=== PATIENT | male | born 1940 | race Caucasian/White ===

== ENCOUNTER 2016-10-05 20:58 | Observation (INO) | payer OTHER ==
[~2016-10-05] VITALS: Ht 179.1 cm; Wt 128.0 kg
[~2016-10-05 20:58] MED LIST: ADULT LOW DOSE81 M1 PO; AMLODIPINE BESY10 MG PO; AMLODIPINE BESYL5 MG PO; APRESOLINE100 MG PO; ASPIRIN81 M2 PO; ATENOLOL100 M1 PO; ATENOLOL50 MG PO; BUMEX0.5 MG PO; CALCITRIOL0.25 MCG PO; CATAPRES0.3 MG PO; CHLORTHALIDONE25 MG PO; CLEOCIN HCL300 MG PO; CLONIDINE HCL0.2 MG PO; CRESTOR40 MG PO; DIOVAN160 MG PO; FENOFIBRATE40 MG PO; FENOFIBRATE48 MG PO; Feosol PO; GABAPENTIN300 MG PO; GLUCOPHAGE500 M1 PO; HYDROCHLOROTHIA25 MG PO; IMDUR60 MG PO; LIPITOR20 MG PO; NITROSTAT,NITR0.4 M1 SL; NORVASC5 MG PO; PANTOPRAZOLE SO40 MG PO; PLAVIX75 MG PO; PRINIVIL40 MG PO; Protonix PO; TENORMIN100 M1 PO; TRICOR145 MG PO; VITAMIN B-12250 MCG PO; VITAMIN B122500 MCG PO; VITAMIN D-32000 UNI2 PO; VITAMIN D2000 UNIT PO; ZESTRIL,PRINIVI40 MG PO; ZETIA10 MG PO
[2016-10-05 21:25] LABS: HEMATOCRIT 33.5 % (38.0-50.0); MCH 31.4 PG (29.0-34.0); MCHC 32.5 G/DL (30.0-36.0); MCV 96.5 FL (86-99); MEAN PLAT.VOLUME 9.4 uM^3 (9.0-12.4); PLATELET COUNT 265 K/uL (156-360); RBC DIS.WIDTH-CV 13.2 % (11.8-14.6); RBC DIS.WIDTH-SD 46.8 % (39-53); RED BLOOD COUNT 3.47 M/uL (4.00-5.50); WHITE BLOOD COUNT 6.3 K/uL (4.1-10.2)
[2016-10-05 21:37] LABS: CHLORIDE 109 mEq/L (99-109); POTASSIUM 4.4 mEq/L (3.7-5.4); SODIUM 141 mEq/L (136-147)
[2016-10-05 21:39] LABS: GLUCOSE 159 mg/dL (70-99)
[2016-10-05 21:40] LABS: ANION GAP 13 MEQ/L (2-14)
[2016-10-05 21:43] LABS: GFR ESTIMATE (CALCULATED) 30 mL/min/
[2016-10-05 21:44] LABS: UREA NITROGEN (BUN) 46 mg/dL (9-23)
[2016-10-05 21:48] LABS: TROP-I INTERPRETATION NEGATIVE; TROPONIN-I 0.02 ng/mL (0.0-0.30)
[2016-10-05] MEDS ORDERED: TRICOR48 MG PO (22:08)
[2016-10-05] MEDS ORDERED: CLONIDINE HCL0.3 MG PO (22:09)
[2016-10-05] MEDS ORDERED: LIPITOR40 MG PO (22:09)
[2016-10-05] MEDS ORDERED: VITAMIN B-12500 MC3 PO (22:11)
[2016-10-05] MEDS ORDERED: GABAPENTIN100 MG PO (22:12)
[2016-10-05] MEDS ORDERED: DOXAZOSIN MESYLA1 MG PO (22:12)
[2016-10-05] MEDS ORDERED: IPRATROPIUM BRO15 ML BOTH NARES (22:13)
[2016-10-05] MEDS ORDERED: COLACE100 MG PO (22:13)
[2016-10-05 23:51] VITALS: BP 199/81
[2016-10-06 03:15] VITALS: BP 182/72
[2016-10-06 05:18] VITALS: BP 172/68
[2016-10-06 07:43] VITALS: BP 173/75
[2016-10-06 09:58] LABS: TROP-I INTERPRETATION NEGATIVE; TROPONIN-I < 0.01 ng/mL (0.0-0.30)
[2016-10-06 10:50] VITALS: BP 135/62
[2016-10-06] MEDS ORDERED: NITROSTAT0.4 MG SL (12:25)
[2016-10-06 13:16] LABS: TROP-I INTERPRETATION NEGATIVE; TROPONIN-I 0.03 ng/mL (0.0-0.30)
== END 2016-10-06 14:15 | disposition home or self-care (01) ==
LOC: EME 20:58 → EDOF 21:43 → 5WEST 21:43 → EDOF 21:43 → 5WEST 23:19
PROVIDERS: Family Medicine
DX: R07.89 Other chest pain (principal); R94.31 Abnormal electrocardiogram [ECG] [EKG]; I25.10 Atherosclerotic heart disease of native coronary artery without angina pectoris; I12.9 Hypertensive chronic kidney disease with stage 1 through stage 4 chronic kidney disease, or unspecified chronic kidney disease; N18.9 Chronic kidney disease, unspecified; E11.9 Type 2 diabetes mellitus without complications; J44.9 Chronic obstructive pulmonary disease, unspecified; I73.9 Peripheral vascular disease, unspecified; K21.9 Gastro-esophageal reflux disease without esophagitis; Z95.1 Presence of aortocoronary bypass graft; Z95.5 Presence of coronary angioplasty implant and graft; G47.33 Obstructive sleep apnea (adult) (pediatric); E78.5 Hyperlipidemia, unspecified; E66.9 Obesity, unspecified
CPT/HCPCS: 71020; 80048; 84484; 85027; 93005; 99281; 99283; G0378; J0360; J1644

== ENCOUNTER 2016-10-26 07:51 | Day surgery (SDC) | payer OTHER ==
[~2016-10-26] VITALS: Ht 179.1 cm; Wt 125.9 kg
[~2016-10-26 07:51] MED LIST changes: +CLONIDINE HCL0.3 MG PO; +COLACE100 MG PO; +DOXAZOSIN MESYLA1 MG PO; +GABAPENTIN100 MG PO; +IPRATROPIUM BRO15 ML BOTH NARES; +LIPITOR40 MG PO; +NITROSTAT0.4 MG SL; +TRICOR48 MG PO; +VITAMIN B-12500 MC3 PO
[2016-10-26] MEDS ORDERED: ISOSORBIDE MONO30 MG PO (09:01)
[2016-10-26 19:20] VITALS: BP 186/81
[2016-10-27] VITALS: BP 148/67
[2016-10-27 06:20] LABS: ANION GAP 10 MEQ/L (2-14); CHLORIDE 110 MEQ/L (99-109); GFR ESTIMATE (CALCULATED) 31 mL/min/; GLUCOSE 129 mg/dL (70-99); POTASSIUM 4.4 MEQ/L (3.7-5.4); SAMPLE HEMOLYSIS CHECK 0; SAMPLE ICTERIC CHECK 0; SAMPLE LIPEMIA CHECK 0; SODIUM 142 MEQ/L (136-147); UREA NITROGEN (BUN) 42 mg/dL (9-23)
[2016-10-27 08:39] VITALS: BP 168/74
[2016-10-27 12:44] VITALS: BP 137/61
[2016-10-27 14:33] VITALS: BP 171/74
[2016-10-27 17:47] VITALS: BP 162/58
[2016-10-27] MEDS ORDERED: ISOSORBIDE MONO60 MG PO (17:55)
[2016-10-27] MEDS ORDERED: LABETALOL HCL300 MG PO (17:55)
== END 2016-10-27 19:18 | disposition home or self-care (01) ==
LOC: CATH 07:51 → 2SOUTH 16:45 → 4EAST 16:45 → 2SOUTH 16:45 → 4EAST 19:30
PROVIDERS: Internal Medicine Cardiovascular Disease
DX: I25.10 Atherosclerotic heart disease of native coronary artery without angina pectoris (principal); I12.9 Hypertensive chronic kidney disease with stage 1 through stage 4 chronic kidney disease, or unspecified chronic kidney disease; E11.22 Type 2 diabetes mellitus with diabetic chronic kidney disease; N18.9 Chronic kidney disease, unspecified; I45.10 Unspecified right bundle-branch block; R00.1 Bradycardia, unspecified; E66.01 Morbid (severe) obesity due to excess calories; I44.0 Atrioventricular block, first degree; Z95.1 Presence of aortocoronary bypass graft; I73.9 Peripheral vascular disease, unspecified; E78.5 Hyperlipidemia, unspecified; Z79.82 Long term (current) use of aspirin; Z79.01 Long term (current) use of anticoagulants; Z79.899 Other long term (current) drug therapy; Z87.891 Personal history of nicotine dependence
CPT/HCPCS: 80048; 82948; 85347; 94660; C1769; C1887; C1894; G0378; J0360; J1644; J1815; J2250; J3010; J7040; J7050

== ENCOUNTER 2016-11-27 12:08 | Inpatient (IN) | payer OTHER ==
[~2016-11-27] VITALS: Ht 177.8 cm; Wt 124.3 kg
[~2016-11-27 12:08] MED LIST changes: +ISOSORBIDE MONO30 MG PO; +ISOSORBIDE MONO60 MG PO; +LABETALOL HCL300 MG PO
[2016-11-27 13:48] LABS: EOSINOPHIL (%) 4.8 % (0-5); EOSINOPHIL COUNT 0.3 K/uL (0-0.3); HEMATOCRIT 29.3 % (38.0-50.0); IMMATURE GRANULOCYTE (%) 0.2 % (0.0-0.7); INSTRUMENT ABS NEUTROPHIL CT 3.8 K/uL; LYMPHOCYTE COUNT 1.1 K/uL (1.0-2.8); MCH 30.8 PG (29.0-34.0); MCHC 31.7 G/DL (30.0-36.0); MEAN PLAT.VOLUME 9.8 uM^3 (9.0-12.4); MONOCYTE (%) 7.3 % (3-12); MONOCYTE COUNT 0.4 K/uL (0-0.8); NEUTROPHIL (%) 67.5 % (45-76); NEUTROPHIL COUNT 3.8 K/uL (1.8-6.4); PLATELET COUNT 227 K/uL (156-360); RBC DIS.WIDTH-CV 13.5 % (11.8-14.6); RBC DIS.WIDTH-SD 47.9 % (39-53); RED BLOOD COUNT 3.02 M/uL (4.00-5.50); WHITE BLOOD COUNT 5.6 K/uL (4.1-10.2)
[2016-11-27 13:58] LABS: CHLORIDE 109 mEq/L (99-109)
[2016-11-27 13:59] LABS: POTASSIUM 4.5 mEq/L (3.7-5.4); SODIUM 142 mEq/L (136-147)
[2016-11-27 14:00] LABS: GLUCOSE 123 mg/dL (70-99)
[2016-11-27 14:01] LABS: INTER. NORMALIZED RATIO 1.2; PROTHROMBIN TIME 12.3 (9.2-11.2)
[2016-11-27 14:02] LABS: ANION GAP 9 MEQ/L (2-14)
[2016-11-27 14:04] LABS: GFR ESTIMATE (CALCULATED) 30 mL/min/
[2016-11-27 14:05] LABS: UREA NITROGEN (BUN) 44 mg/dL (9-23)
[2016-11-27 14:11] LABS: TROP-I INTERPRETATION NEGATIVE; TROPONIN-I 0.24 ng/mL (0.0-0.30)
[2016-11-27 14:16] LABS: PTT 19.6 (25-32)
[2016-11-27] MEDS ORDERED: ISOSORBIDE MONO60 MG PO (16:00)
[2016-11-27] MEDS ORDERED: APRESOLINE50 MG PO (16:00)
[2016-11-27] MEDS ORDERED: VALSARTAN160 MG PO (16:03)
[2016-11-27] MEDS ORDERED: BUMETANIDE0.5 MG PO (16:03)
[2016-11-27 17:00] VITALS: BP 168/70
[2016-11-27 19:25] VITALS: BP 174/76
[2016-11-27 19:56] LABS: TROP-I INTERPRETATION NEGATIVE; TROPONIN-I 0.21 ng/mL (0.0-0.30)
[2016-11-27 23:26] VITALS: BP 156/70
[2016-11-28 02:15] LABS: TROP-I INTERPRETATION NEGATIVE; TROPONIN-I 0.19 ng/mL (0.0-0.30)
[2016-11-28 04:42] VITALS: BP 130/85
[2016-11-28 07:02] LABS: EOSINOPHIL (%) 5.1 % (0-5); EOSINOPHIL COUNT 0.3 K/uL (0-0.3); HEMATOCRIT 28.3 % (38.0-50.0); IMMATURE GRANULOCYTE (%) 0.2 % (0.0-0.7); INSTRUMENT ABS NEUTROPHIL CT 3.8 K/uL; LYMPHOCYTE COUNT 1.4 K/uL (1.0-2.8); MCH 31.6 PG (29.0-34.0); MCHC 32.2 G/DL (30.0-36.0); MCV 98.3 FL (86-99); MEAN PLAT.VOLUME 10.1 uM^3 (9.0-12.4); MONOCYTE (%) 8.3 % (3-12); MONOCYTE COUNT 0.5 K/uL (0-0.8); NEUTROPHIL (%) 63.3 % (45-76); NEUTROPHIL COUNT 3.8 K/uL (1.8-6.4); PLATELET COUNT 213 K/uL (156-360); RBC DIS.WIDTH-CV 13.6 % (11.8-14.6); RBC DIS.WIDTH-SD 48.9 % (39-53); RED BLOOD COUNT 2.88 M/uL (4.00-5.50); WHITE BLOOD COUNT 6.1 K/uL (4.1-10.2)
[2016-11-28 07:31] VITALS: BP 150/65
[2016-11-28 07:40] LABS: Estimated Average Glucose 128 mg/dL (70-123); HEMOGLOBIN A1c (GLYCOHEMOGLOB) 6.1 % HGB (Below 5.7)
[2016-11-28 08:04] LABS: ANION GAP 7 MEQ/L (2-14); CHLORIDE 108 MEQ/L (99-109); GFR ESTIMATE (CALCULATED) 27 mL/min/; GLUCOSE 113 mg/dL (70-99); POTASSIUM 4.1 MEQ/L (3.7-5.4); SAMPLE HEMOLYSIS CHECK 0; SAMPLE ICTERIC CHECK 0; SAMPLE LIPEMIA CHECK 0; SODIUM 141 MEQ/L (136-147); UREA NITROGEN (BUN) 43 mg/dL (9-23)
[2016-11-28 11:37] VITALS: BP 115/54
[2016-11-28 15:19] VITALS: BP 129/63
[2016-11-28 20:15] VITALS: BP 166/71
[2016-11-28 23:13] VITALS: BP 173/72
[2016-11-29 03:50] VITALS: BP 156/72
[2016-11-29 05:30] LABS: EOSINOPHIL (%) 6.2 % (0-5); EOSINOPHIL COUNT 0.4 K/uL (0-0.3); HEMATOCRIT 28.6 % (38.0-50.0); IMMATURE GRANULOCYTE (%) 0.2 % (0.0-0.7); INSTRUMENT ABS NEUTROPHIL CT 3.2 K/uL; LYMPHOCYTE COUNT 1.6 K/uL (1.0-2.8); MCH 31.3 PG (29.0-34.0); MCHC 31.8 G/DL (30.0-36.0); MCV 98.3 FL (86-99); MEAN PLAT.VOLUME 10.2 uM^3 (9.0-12.4); MONOCYTE (%) 9.4 % (3-12); MONOCYTE COUNT 0.5 K/uL (0-0.8); NEUTROPHIL (%) 56.1 % (45-76); NEUTROPHIL COUNT 3.2 K/uL (1.8-6.4); PLATELET COUNT 236 K/uL (156-360); RBC DIS.WIDTH-CV 13.4 % (11.8-14.6); RBC DIS.WIDTH-SD 48.6 % (39-53); RED BLOOD COUNT 2.91 M/uL (4.00-5.50); WHITE BLOOD COUNT 5.6 K/uL (4.1-10.2)
[2016-11-29 05:46] LABS: ANION GAP 11 MEQ/L (2-14); CHLORIDE 106 MEQ/L (99-109); GFR ESTIMATE (CALCULATED) 25 mL/min/; GLUCOSE 109 mg/dL (70-99); POTASSIUM 4.5 MEQ/L (3.7-5.4); SAMPLE HEMOLYSIS CHECK 1; SAMPLE ICTERIC CHECK 0; SAMPLE LIPEMIA CHECK 0; SODIUM 142 MEQ/L (136-147); UREA NITROGEN (BUN) 50 mg/dL (9-23)
[2016-11-29 08:00] VITALS: BP 198/76
[2016-11-29 11:46] VITALS: BP 127/58
[2016-11-29 11:58] LABS: IRON 33 MCG/DL (35-150)
[2016-11-29 15:04] VITALS: BP 141/68
[2016-11-29 19:05] VITALS: BP 143/64
[2016-11-29 23:25] VITALS: BP 178/74
[2016-11-30 04:34] VITALS: BP 152/67
[2016-11-30 06:45] LABS: ANION GAP 11 MEQ/L (2-14); CHLORIDE 105 MEQ/L (99-109); GFR ESTIMATE (CALCULATED) 24 mL/min/; GLUCOSE 106 mg/dL (70-99); POTASSIUM 4.6 MEQ/L (3.7-5.4); SAMPLE HEMOLYSIS CHECK 0; SAMPLE ICTERIC CHECK 0; SAMPLE LIPEMIA CHECK 0; SODIUM 141 MEQ/L (136-147); UREA NITROGEN (BUN) 52 mg/dL (9-23)
[2016-11-30 07:21] VITALS: BP 149/66
[2016-11-30 11:14] VITALS: BP 141/61
[2016-11-30 15:50] VITALS: BP 167/74
[2016-11-30 17:42] VITALS: BP 161/70
[2016-11-30 19:46] VITALS: BP 165/71
[2016-12-01 00:33] VITALS: BP 143/65
[2016-12-01 04:20] VITALS: BP 172/75
[2016-12-01 07:17] VITALS: BP 136/60
[2016-12-01 08:17] LABS: HEMATOCRIT 29.9 % (38.0-50.0); MCH 30.9 PG (29.0-34.0); MCHC 31.1 G/DL (30.0-36.0); MCV 99.3 FL (86-99); PLATELET COUNT 273 K/uL (156-360); RBC DIS.WIDTH-CV 13.5 % (11.8-14.6); RBC DIS.WIDTH-SD 48.8 % (39-53); RED BLOOD COUNT 3.01 M/uL (4.00-5.50); WHITE BLOOD COUNT 4.7 K/uL (4.1-10.2)
[2016-12-01 08:46] LABS: ANION GAP 11 MEQ/L (2-14); CHLORIDE 101 MEQ/L (99-109); GFR ESTIMATE (CALCULATED) 24 mL/min/; GLUCOSE 102 mg/dL (70-99); POTASSIUM 4.9 MEQ/L (3.7-5.4); SAMPLE HEMOLYSIS CHECK 0; SAMPLE ICTERIC CHECK 0; SAMPLE LIPEMIA CHECK 0; SODIUM 137 MEQ/L (136-147); UREA NITROGEN (BUN) 56 mg/dL (9-23)
[2016-12-01 15:06] VITALS: BP 161/71
[2016-12-01 23:00] VITALS: BP 127/59
[2016-12-02 07:48] VITALS: BP 173/74
[2016-12-02 07:51] LABS: ANION GAP 9 MEQ/L (2-14); CHLORIDE 108 MEQ/L (99-109); GFR ESTIMATE (CALCULATED) 24 mL/min/; GLUCOSE 95 mg/dL (70-99); SAMPLE HEMOLYSIS CHECK 0; SAMPLE ICTERIC CHECK 0; SAMPLE LIPEMIA CHECK 0; SODIUM 141 MEQ/L (136-147); UREA NITROGEN (BUN) 56 mg/dL (9-23)
[2016-12-02] MEDS ORDERED: APRESOLINE100 MG PO (11:55)
[2016-12-02] MEDS ORDERED: BUMETANIDE1 MG PO (11:55)
[2016-12-02] MEDS ORDERED: DOXAZOSIN MESYLA2 MG PO (11:55)
== END 2016-12-02 14:08 | disposition home or self-care (01) | DRG 641 ==
LOC: EME 12:08 → 4EAST 15:27 → EDOF 15:27 → 4EAST 16:39 → 5EAST 11-30 17:30
PROVIDERS: Emergency Medicine; Family Medicine; Internal Medicine; Internal Medicine Cardiovascular Disease
DX: E87.70 Fluid overload, unspecified (principal); I12.9 Hypertensive chronic kidney disease with stage 1 through stage 4 chronic kidney disease, or unspecified chronic kidney disease; D63.1 Anemia in chronic kidney disease; J40 Bronchitis, not specified as acute or chronic; E11.22 Type 2 diabetes mellitus with diabetic chronic kidney disease; J90 Pleural effusion, not elsewhere classified; N18.3 Chronic kidney disease, stage 3 (moderate); E11.51 Type 2 diabetes mellitus with diabetic peripheral angiopathy without gangrene; E11.8 Type 2 diabetes mellitus with unspecified complications; I25.10 Atherosclerotic heart disease of native coronary artery without angina pectoris; E66.01 Morbid (severe) obesity due to excess calories; J44.9 Chronic obstructive pulmonary disease, unspecified; E78.5 Hyperlipidemia, unspecified; G47.30 Sleep apnea, unspecified; I73.9 Peripheral vascular disease, unspecified; K59.00 Constipation, unspecified; G47.33 Obstructive sleep apnea (adult) (pediatric); K21.9 Gastro-esophageal reflux disease without esophagitis; Z68.39 Body mass index [BMI] 39.0-39.9, adult; M54.5 Low back pain; K42.9 Umbilical hernia without obstruction or gangrene; R09.02 Hypoxemia; M19.90 Unspecified osteoarthritis, unspecified site; E55.9 Vitamin D deficiency, unspecified; G89.29 Other chronic pain; M54.9 Dorsalgia, unspecified; Z95.1 Presence of aortocoronary bypass graft; Z87.891 Personal history of nicotine dependence; Z79.4 Long term (current) use of insulin
CPT/HCPCS: 71010; 71250; 80048; 83036; 83540; 83605; 83880; 84100; 84466; 84484; 85025; 85027; 85610; 85730; 87040; 93005; 94640; 94640 76; 94760; 94799; 99202; 99281; 99285; J0456; J1644; J1756; J7050

== ENCOUNTER → 2018-02-28 | Outpatient (CLI) | payer MEDICARE, OTHER ==
[~2018-02-28] MED LIST changes: +APRESOLINE50 MG PO; +BUMETANIDE0.5 MG PO; +BUMETANIDE1 MG PO; +DOXAZOSIN MESYLA2 MG PO; +VALSARTAN160 MG PO
== END | disposition home or self-care (01) ==
LOC: CDC 12:33
DX: Z01.810 Encounter for preprocedural cardiovascular examination (principal); I10 Essential (primary) hypertension; I49.1 Atrial premature depolarization; I45.10 Unspecified right bundle-branch block
CPT/HCPCS: 93000